=== PATIENT | female | born 1990 | race African-American/Black ===

== ENCOUNTER 2018-08-16 21:40 | Observation (INO) | payer MEDICAID ==
[~2018-08-16 21:40] MED LIST: PREN-129 OR
[2018-08-16] MEDS ORDERED: LACTATED RINGER'S 1,000 ML IV ONE (21:50)
[2018-08-16] MEDS ORDERED: TERBUTALINE SULFATE 1 MG/ML 1ML VIAL SC SCH (22:00)
[2018-08-17 00:22] LABS: Alcohol, Urine < 3.0 mg/dL (0-5)
[2018-08-17 00:23] LABS: Amphetamine Screen, Urine NEGATIVE (NEGATIVE); Barbiturate Scree,Urine NEGATIVE (NEGATIVE); Benzodiazephine Screen, Urine NEGATIVE (NEGATIVE); Cannabinoid Screen, Urine NEGATIVE (NEGATIVE); Cocaine Screen, Urine NEGATIVE (NEGATIVE); Opiate Scree,Urine NEGATIVE (NEGATIVE); Phencyclidine Screen, Urine NEGATIVE (NEGATIVE)
== END 2018-08-16 23:35 | disposition home or self-care (01) | DRG 563 ==
LOC: LDRP 21:40
PROVIDERS: ADMIT Specialist; ATTEND Specialist
DX: O60.02 Preterm labor without delivery, second trimester (principal); Z3A.25 25 weeks gestation of pregnancy
CPT/HCPCS: 59025; 76805; 80307; 81002; 96372; G0378; J3105